=== PATIENT | female | born 1955 | race African-American/Black ===

== ENCOUNTER 2017-02-24 16:59 | Emergency (ER) | payer OTHER, MEDICAID ==
[~2017-02-24] VITALS: Ht 162.6 cm; Wt 108.9 kg
[~2017-02-24 16:59] MED LIST: ENAL10TA86; GLYB1POW; IBU800T; NORCO
[2017-02-24 17:05] VITALS: BP 148/83
[2017-02-24] MEDS ORDERED: KETOROLAC TROMETH 60MG/2ML VIAL IM ONE (17:45)
== END 2017-02-24 18:07 | disposition home or self-care (01) ==
LOC: ER 17:02
DX: S92.911A Unspecified fracture of right toe(s), initial encounter for closed fracture (principal); E11.9 Type 2 diabetes mellitus without complications; K21.9 Gastro-esophageal reflux disease without esophagitis; I10 Essential (primary) hypertension; F17.210 Nicotine dependence, cigarettes, uncomplicated; Z88.8 Allergy status to other drugs, medicaments and biological substances; X50.0XXA Overexertion from strenuous movement or load, initial encounter; Y93.89 Activity, other specified; Y92.89 Other specified places as the place of occurrence of the external cause; Y99.8 Other external cause status
CPT/HCPCS: 73630; 96372; 99284; J1885